=== PATIENT | female | born 1965 ===

== ENCOUNTER 2017-02-15 08:48 | Emergency (ER) | payer SELFPAY ==
[2017-02-15 08:54] VITALS: BP 111/73; PULSE 75; RESP 18; TEMP 98.4; O2SAT 100
[2017-02-15] MEDS ORDERED: guaiFENesin 100 mg/5 ml Syrup UD PO STA (09:34)
--- NOTE | 2017-02-15 09:35 | C.PDOC ---
History Of Present Illness 51 y/o female presents to the ER complaining of cough, cold, and congestion which have been present for the past 3 days. Patient reports that he is taking over the counter medications. Patient denies having any other medical complaints. Time Seen by Provider: 02/15/17 09:28 Chief Complaint (Nursing): Cough, Cold, Congestion History Per: Patient History/Exam Limitations: no limitations Onset/Duration Of Symptoms: Mins Severity: Moderate Past Medical History Reviewed: Historical Data, Nursing Documentation, Vital Signs Vital Signs: Last Vital Signs Temp 98.4 F 02/15/17 08:51 Pulse 75 02/15/17 08:51 Resp 18 02/15/17 08:51 BP 111/73 02/15/17 08:51 Pulse Ox 100 02/15/17 15:16 - Medical History PMH: Anemia, Depression Surgical History: No Surg Hx Family History: States: No Known Family Hx - Social History Hx Alcohol Use: No Hx Substance Use: No - Immunization History Hx Tetanus Toxoid Vaccination: No Hx Influenza Vaccination: No Hx Pneumococcal Vaccination: No Review Of Systems Constitutional: Negative for: Fever, Chills ENT: Positive for: Nose Congestion. Negative for: Throat Pain Respiratory: Positive for: Cough Physical Exam - Physical Exam Appears: Non-toxic, No Acute Distress Skin: Normal Color, Warm Head: Atraumatic, Normacephalic Eye(s): bilateral: Normal Inspection, PERRL Nose: Discharge (mild nasal congestion) Oral Mucosa: Moist Throat: Normal, No Erythema, No Exudate Neck: Supple Cardiovascular: Rhythm Regular Respiratory: Normal Breath Sounds, No Accessory Muscle Use Extremity: Normal ROM Neurological/Psych: Oriented x3, Normal Speech, Normal Cognition, Normal Motor, Normal Sensation ED Course And Treatment O2 Sat by Pulse Oximetry: 100 (RA) Pulse Ox Interpretation: Normal Progress Note: gibson vences Reevaluation Time: 09:35 Reassessment Condition: Improved Medical Decision Making Medical Decision Making: viral syndrome, low susp influenza, + sick contacts @ home prior to her Disposition Doctor Will See Patient In The: Office Counseled Patient/Family Regarding: Studies Performed, Diagnosis - Disposition Referrals: [facility] [Outside] [facility] [Outside] Disposition: HOME/ ROUTINE Disposition Time: 09:35 Condition: GOOD Additional Instructions: sigue Dayquil/Nyquil trey dirijido Bessie bastante! Bessie muchos liquidos. Sigue en la [facility] trey necessario Estas sintomas pack 2 semanas typicamente. Prescriptions: D-Methorphan/PE/Acetaminophen [Day Time Cold-Flu Liquid] 237 ml PO Q6H PRN #1 liquid PRN Reason: viral syndr Instructions: Viral Syndrome (ED) Forms: [employer] (Uruguayan) Print Language: GREENLANDIC - Clinical Impression Clinical Impression: Viral disease - Scribe Statement The provider has reviewed the documentation as recorded by the Scribe Jet Simmons Provider Attestation: All medical record entries made by the Scribe were at my direction and personally dictated by me. I have reviewed the chart and agree that the record accurately reflects my personal performance of the history, physical exam, medical decision making, and the department course for this patient. I have also personally directed, reviewed, and agree with the discharge instructions and disposition.
[2017-02-15] MEDS ORDERED: guaiFENesin 100 mg/5 ml Syrup UD ONE (09:44)
== END 2017-02-15 09:56 | disposition home or self-care (01) ==
LOC: C.ER 08:48
DX: B34.9 Viral infection, unspecified (principal)

== ENCOUNTER 2017-03-01 12:44 | Emergency (ER) | payer SELFPAY ==
[2017-03-01] MEDS ORDERED: Sodium Chloride 0.9% 1,000 ML IV ONE (15:11)
--- NOTE | 2017-03-01 15:17 | C.PDOC ---
History Of Present Illness 51 y/o female presents to ED with complaints of cramping abdominal pain and vomiting for 1 day with associated diarrhea. Patient denies recent travel, fever , chills, back pain, blood in stool or any other complaints at this time. Time Seen by Provider: 03/01/17 14:53 Chief Complaint (Nursing): GI Problem History Per: Patient History/Exam Limitations: no limitations Onset/Duration Of Symptoms: Days Current Symptoms Are (Timing): Still Present Past Medical History Reviewed: Historical Data, Nursing Documentation, Vital Signs Vital Signs: Last Vital Signs Temp 98.5 F 03/01/17 13:32 Pulse 62 03/01/17 13:32 Resp 20 03/01/17 13:32 BP 113/73 03/01/17 13:32 Pulse Ox 97 03/01/17 17:42 - Medical History PMH: Anemia, Depression Surgical History: No Surg Hx Family History: States: No Known Family Hx - Social History Hx Alcohol Use: No Hx Substance Use: No - Immunization History Hx Tetanus Toxoid Vaccination: No Hx Influenza Vaccination: No Hx Pneumococcal Vaccination: No Review Of Systems Constitutional: Negative for: Fever, Chills Gastrointestinal: Positive for: Vomiting, Abdominal Pain, Diarrhea Genitourinary: Negative for: Dysuria, Hematuria Musculoskeletal: Negative for: Back Pain Skin: Negative for: Rash Physical Exam - Physical Exam Appears: Non-toxic, No Acute Distress Skin: Warm, Dry, No Rash Head: Atraumatic, Normacephalic Oral Mucosa: Moist Neck: Supple Cardiovascular: Rhythm Regular Gastrointestinal/Abdominal: Soft, Tenderness (Mild abdomen), No Guarding, No Rebound Back: No CVA Tenderness Extremity: Normal ROM, Capillary Refill (<2 seconds) Neurological/Psych: Oriented x3 ED Course And Treatment - Laboratory Results Result Diagrams: 03/01/17 16:05 03/01/17 16:05 Lab Interpretation: Normal O2 Sat by Pulse Oximetry: 97 (RA) Pulse Ox Interpretation: Normal Progress Note: Bentyl, Zofran administered, Blood work, UA ordered. On re evaluation feeling better, abdomen soft. Discharged in stable condition Reassessment Condition: Improved Disposition Counseled Patient/Family Regarding: Studies Performed, Diagnosis, Need For Followup - Disposition Referrals: [facility] [Outside] [facility] [Outside] Disposition: HOME/ ROUTINE Disposition Time: 18:00 Condition: IMPROVED Additional Instructions: Follow up with your PMD for further evaluation Prescriptions: Ondansetron ODT [Zofran ODT] 1 odt PO BID PRN #6 odt PRN Reason: Nausea/Vomiting Instructions: Gastroenteritis (ED) Forms: [facility] [employer] (Divehi) - POA Present On Arrival: None - Clinical Impression Clinical Impression: Gastroenteritis - 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 - Scribe Statement The provider has reviewed the documentation as recorded by the Yanelisibamanda Wiggins All medical record entries made by the Mia were at my direction and personally dictated by me. I have reviewed the chart and agree that the record accurately reflects my personal performance of the history, physical exam, medical decision making, and the department course for this patient. I have also personally directed, reviewed, and agree with the discharge instructions and disposition.
[2017-03-01] MEDS ORDERED: Sodium Chloride 0.9% 1,000 ML ONE (16:12)
[2017-03-01 16:21] LABS: SQUAMOUS EPITHIAL 2 /hpf (0-5); URINE BACTERIA RARE (<OCC); URINE BILIRUBIN NEGATIVE (NEGATIVE); URINE BLOOD 2+ (NEGATIVE); URINE CLARITY Clear (Clear); URINE COLOR Straw (YELLOW); URINE GLUCOSE (UA) NORMAL (Normal); URINE LEUKOCYTE ESTERASE 1+ Leu/uL (Negative); URINE NITRATE NEGATIVE (NEGATIVE); URINE PROTEIN NEGATIVE (NEGATIVE); URINE UROBILINOGEN NORMAL mg/dL (0.2-1.0)
[2017-03-01 16:28] LABS: BASO # 0.1 K/uL (0.0-0.2); BASO % 1.1 % (0.0-2.0); EOS % 0.6 % (0.0-4.0); HEMOGLOBIN 11.7 g/dL (11.0-16.0); LYMPH # 3.9 K/uL (1.0-4.3); LYMPH % 51.3 % (20.0-40.0); MEAN CELL VOLUME 69.7 fL (81.0-99.0); MEAN CORPUSCULAR HEMOGLOBIN 22.3 pg (27.0-31.0); MEAN PLATELET VOLUME 8.1 fL (7.2-11.7); MONO # 0.5 K/uL (0.0-0.8); MONO % 6.8 % (0.0-10.0); NEUT # 3.1 K/uL (1.8-7.0); NEUT % 40.2 % (50.0-75.0); NRBC % 0.1 % (0.0-2.0); PLATELET COUNT 326 K/uL (130-400); RBC 5.25 Mil/uL (3.80-5.20); RED CELL DISTRIBUTION WIDTH 14.9 % (11.5-14.5); WHITE BLOOD COUNT 7.6 K/uL (4.8-10.8)
[2017-03-01 16:31] LABS: ALB/GLOB RATIO 1.2 (1.0-2.1); ALBUMIN 4.1 g/dL (3.5-5.0); ALT/SGPT 21 U/L (9-52); AST/SGOT 18 U/L (14-36); BLOOD UREA NITROGEN 7 mg/dL (7-17); CALCIUM 9.2 mg/dl (8.6-10.4); GFR AFRICAN-AMERICAN > 60; GFR NON-AFRICAN AMERICAN > 60; LIPASE 67 U/L (23-300)
[2017-03-01 16:55] LABS: ANISOCYTOSIS SLIGHT; LYMPHOCYTE 36 % (20-40); MICROCYTOSIS SLIGHT; MONOCYTE 9 % (0-10); NEUTROPHIL 48 % (50-75); PLATELET ESTIMATE NORMAL (NORMAL); POIKILOCYTOSIS SLIGHT; REACTIVE LYMPHOCYTES 7 % (0-0); TOTAL CELLS COUNTED 100
[2017-03-01 18:17] VITALS: BP 102/70; PULSE 58; RESP 16; TEMP 97.6
[2017-03-01 18:29] VITALS: O2SAT 97
== END 2017-03-01 18:17 | disposition home or self-care (01) ==
LOC: C.ER 12:44
DX: K52.9 Noninfective gastroenteritis and colitis, unspecified (principal)
CPT/HCPCS: 80053; 81001; 83690; 85025; 96361; 96372; 96374; 99285; J0500; J2405; J7040

== ENCOUNTER 2018-02-08 10:33 | Outpatient (CLI) | payer OTHER | END 2018-02-08 10:34 | disposition home or self-care (01) | LOC: C.LAB 10:33 | DX: M25.50 Pain in unspecified joint (principal); R31.29 Other microscopic hematuria ==